=== PATIENT | female | born 1950 | race Caucasian/White ===

== ENCOUNTER 2016-12-06 11:13 | Emergency (ER) | payer OTHER ==
[~2016-12-06] VITALS: Ht 167.6 cm; Wt 100.0 kg
[2016-12-06] MEDS ORDERED: AGGRENOX1 CAPSULE PO (11:31)
[2016-12-06] MEDS ORDERED: BUPROPION HCL150 M2 PO (11:31)
[2016-12-06] MEDS ORDERED: ZESTORETIC 10-1 EAC1 PO (11:32)
[2016-12-06] MEDS ORDERED: METOPROLOL TART50 MG PO (11:33)
[2016-12-06] MEDS ORDERED: FENOFIBRATE54 M1 PO (11:34)
[2016-12-06] MEDS ORDERED: ZOLPIDEM TARTRA10 MG PO (11:34)
[2016-12-06] MEDS ORDERED: PERCOCET 5/31 TABLET PO (13:23)
[2016-12-06 13:54] VITALS: BP 139/83
== END 2016-12-06 14:01 | disposition home or self-care (01) ==
LOC: RME 11:13 → EME 11:13 → RME 14:01
PROC: 2W3QX1Z Immobilization of Right Lower Leg using Splint (ICD-10-PCS; principal; 2016-12-06)
DX: S82.831A Other fracture of upper and lower end of right fibula, initial encounter for closed fracture (principal); S66.911A Strain of unspecified muscle, fascia and tendon at wrist and hand level, right hand, initial encounter; S86.911A Strain of unspecified muscle(s) and tendon(s) at lower leg level, right leg, initial encounter; M79.621 Pain in right upper arm; W10.9XXA Fall (on) (from) unspecified stairs and steps, initial encounter; E78.5 Hyperlipidemia, unspecified; I10 Essential (primary) hypertension; Z79.82 Long term (current) use of aspirin
CPT/HCPCS: 73060; 73564; 73610; 99281; 99284